=== PATIENT | male | born 1980 | race Caucasian/White ===

== ENCOUNTER 2018-05-10 07:05 | Day surgery (SDC) | END 2018-05-10 15:09 | disposition home or self-care (01) ==

== ENCOUNTER 2018-08-08 17:34 | Emergency (ER) | END 2018-08-08 20:40 | disposition home or self-care (01) ==

== ENCOUNTER 2019-01-10 14:14 | Emergency (ER) | payer BC ==
[~2019-01-10] VITALS: Wt 105.0 kg
[~2019-01-10 14:14] MED LIST: LISI-313 PO; ZOLP10TA PO
[2019-01-10] MEDS ORDERED: KETOROLAC 30 MG INJ IV STA (16:56)
[2019-01-10] MEDS ORDERED: IODIXANOL LOCM 100 ML BTL ONE (17:51)
[2019-01-10] MEDS ORDERED: SOD CHLORIDE 0.9% 100 ML ONE (17:51)
[2019-01-10] MEDS ORDERED: IBUP-1542 PO (19:15)
[2019-01-10] MEDS ORDERED: DOCU-144 PO (19:15)
--- NOTE | 2019-01-10 19:17 | ERD ---
ER Documentation Chief Complaint Chief Complaint LOWER ABD PAIN X 1 WEEK HPI 38-year-old male presents with lower abdominal pain for last week. Is intermittent and crampy. May have had chills at home but no measured fevers. He has decreased appetite but no nausea vomiting. Denies urinary complaints. Patient states that pain is intermittently right and left. ROS All systems reviewed and are negative except as per history of present illness. Medications Home Meds Active Scripts Ibuprofen* (Motrin*) 600 Mg Tab, 600 MG PO Q6, #20 TAB Prov:ZAY CLINE MD 01/10/19 Docusate Sodium* (Colace*) 100 Mg Capsule, 100 MG PO BID, #30 CAP Prov:ZAY CLINE MD 01/10/19 Zolpidem Tartrate* (Ambien*) 10 Mg Tablet, 10 MG PO QHS PRN for INSOMNIA, #15 TAB Prov:RICHY PROCTOR DO 08/08/18 Reported Medications Lisinopril* (Lisinopril*) 5 Mg Tablet, 5 MG PO DAILY, #30 TAB 08/08/18 Allergies Allergies: Coded Allergies: No Known Allergy (Verified , 08/08/18) PMhx/Soc History of Surgery: Yes (LT ARM SURGERY, hernia repair) Anesthesia Reaction: No Hx Neurological Disorder: No Hx Respiratory Disorders: No Hx Cardiac Disorders: Yes (HTN) Hx Psychiatric Problems: No Hx Miscellaneous Medical Probl: No Hx Alcohol Use: Yes (every weekend) Hx Substance Use: No Hx Tobacco Use: No Smoking Status: Never smoker FmHx Family History: No diabetes, No coronary disease, No other Physical Exam Vitals Vital Signs Date Temp Pulse Resp B/P (MAP) Pulse Ox O2 O2 Flow FiO2 Time Delivery Rate 01/10/19 98.0 74 99 160/60 99 14:17 (93) Physical Exam Const: No acute distress Head: Atraumatic Eyes: Normal Conjunctiva ENT: Normal External Ears, Nose and Mouth. Neck: Full range of motion. No meningismus. Resp: Clear to auscultation bilaterally Cardio: Regular rate and rhythm, no murmurs Abd: Soft, minimal lower abdominal tenderness bilaterally with out rebound. No focal tenderness at McBurney's point no Faulkner sign. Non distended. Normal bowel sounds Skin: No petechiae or rashes Back: No midline or flank tenderness Ext: No cyanosis, or edema Neur: Awake and alert Psych: Normal Mood and Affect Result Diagram: 01/10/19 1710 01/10/19 1710 Results 24 hrs Laboratory Tests Test 01/10/19 17:10 White Blood Count 6.2 10^3/ul Red Blood Count 5.95 10^6/ul Hemoglobin 16.8 g/dl Hematocrit 51.4 % Mean Corpuscular Volume 86.4 fl Mean Corpuscular Hemoglobin 28.2 pg Mean Corpuscular Hemoglobin Concent 32.7 g/dl Red Cell Distribution Width 13.5 % Platelet Count 207 10^3/UL Mean Platelet Volume 9.6 fl Immature Granulocytes % 0.200 % Neutrophils % 59.0 % Lymphocytes % 31.0 % Monocytes % 8.2 % Eosinophils % 0.8 % Basophils % 0.8 % Nucleated Red Blood Cells % 0.0 /100WBC Immature Granulocytes # 0.010 10^3/ul Neutrophils # 3.7 10^3/ul Lymphocytes # 1.9 10^3/ul Monocytes # 0.5 10^3/ul Eosinophils # 0.1 10^3/ul Basophils # 0.1 10^3/ul Nucleated Red Blood Cells # 0.0 10^3/ul Urine Color STRAW Urine Clarity CLEAR Urine pH 5 Urine Specific [place] 1.015 Urine Ketones NEGATIVE mg/dL Urine Nitrite NEGATIVE mg/dL Urine Bilirubin NEGATIVE mg/dL Urine Urobilinogen 0.2 E.U./dL mg/dL Urine Leukocyte Esterase NEGATIVE Griselda/ul Urine Microscopic RBC 0 /HPF Urine Microscopic WBC 0 /HPF Urine Hemoglobin NEGATIVE mg/dL Urine Glucose NEGATIVE mg/dL Urine Total Protein NEGATIVE mg/dl Sodium Level 140 mmol/L Potassium Level 4.6 mmol/L Chloride Level 107 mmol/L Carbon Dioxide Level 24 mmol/L Anion Gap 9 Blood Urea Nitrogen 16 mg/dl Creatinine 1.15 mg/dl Est Glomerular Filtrat Rate mL/min > 60 mL/min Glucose Level 101 mg/dl Calcium Level 9.6 mg/dl Total Bilirubin 0.8 mg/dl Direct Bilirubin 0.00 mg/dl Indirect Bilirubin 0.8 mg/dl Aspartate Amino Transf (AST/SGOT) 37 IU/L Alanine Aminotransferase (ALT/SGPT) 41 IU/L Alkaline Phosphatase 60 IU/L Total Protein 7.6 g/dl Albumin 4.4 g/dl Globulin 3.20 g/dl Albumin/Globulin Ratio 1.37 Lipase 88 U/L Current Medications Medications Dose Sig/Yaima Start Time Status Last (Trade) Ordered Route PRN Stop Time Admin Dose Reason Admin Ketorolac 30 mg ONCE STAT 01/10/19 DC 01/10/19 Tromethamine IV 16:56 01/10/19 17:22 (Toradol) 16:57 IV Flush 10 ml STK-MED 01/10/19 DC (NS 10 ml) ONCE .ROUTE 17:51 01/10/19 17:52 Sodium 100 ml @ ud STK-MED 01/10/19 DC Chloride ONCE .ROUTE 17:51 01/10/19 17:52 Iodixanol 100 ml STK-MED 01/10/19 DC (Visipaque ONCE .ROUTE 17:51 01/10/19 Locm) 17:52 Procedures/MDM CBC and CMP and lipase normal. Urine is negative. CT abdomen pelvis shows no significant acute abnormal findings. No evidence of diverticulitis, appendicitis, additional signs of surgical abdomen. Patient does have findings of constipation on CT. Will treat for this with Colace, ibuprofen, primary care follow-up and return precautions. He is advised to return for fevers, vomiting, worsening pain, blood, new or worsening symptoms with primary care doctor. The patient was stable with no new complaints during the ER course. Clinically, there is no current evidence to suggest meningitis, sepsis, acute abdomen, pneumonia, stroke, acute coronary syndrome, pulmonary embolism, aortic dissection or any other emergent condition appearing to require further evaluation or hospitalization. Patient counseled regarding my diagnostic impression and care plan. Prior to discharge all questions answered. Pt agrees with treatment plan and understands strict return precautions. Pt is instructed to follow up with primary care provider within 24-48 hours. Precautionary instructions provided including instructions to return to the ER if not improving or for any worsening or changing symptoms or concerns. Departure Diagnosis: Primary Impression: Constipation Constipation type: unspecified constipation type Qualified Codes: K59.00 - Constipation, unspecified Additional Impression: Abdominal pain Abdominal location: lower abdomen, unspecified Qualified Codes: R10.30 - Lower abdominal pain, unspecified Condition: Stable Patient Instructions: Abdominal Pain, Constipation (Adult) Additional Instructions: All examinations normal today. Only significant finding is constipation and we will treat for this. Recheck for fevers, vomiting, new or worsening symptoms. See primary doctor within the next week for follow-up. ZAY CLINE MD Jan 10, 2019 19:16
[2019-01-10 19:36] VITALS: BP 131/73; PULSE 71; RESP 20
== END 2019-01-10 19:38 | disposition home or self-care (01) ==
LOC: FTE 14:14
DX: K59.00 Constipation, unspecified (principal); I10 Essential (primary) hypertension
CPT/HCPCS: 36415; 74177; 80053; 81003; 83690; 85025; 96374; 99285; J1885; Q9967

== ENCOUNTER 2019-05-17 15:59 | Emergency (ER) | payer BC ==
[~2019-05-17] VITALS: Ht 182.9 cm; Wt 96.8 kg
[~2019-05-17 15:59] MED LIST changes: +DOCU-144 PO; +IBUP-1542 PO
[2019-05-17 16:05] VITALS: Ht 182.9 cm; Wt 96.8 kg
--- NOTE | 2019-05-17 19:52 | ERD ---
ER Documentation Chief Complaint Chief Complaint painful urination x 1 week ROS All systems reviewed and are negative except as per history of present illness. Medications Home Meds Active Scripts Ibuprofen* (Motrin*) 600 Mg Tab, 600 MG PO Q6, #20 TAB Prov:ZAY CLINE MD 01/10/19 Docusate Sodium* (Colace*) 100 Mg Capsule, 100 MG PO BID, #30 CAP Prov:ZAY CLINE MD 01/10/19 Zolpidem Tartrate* (Ambien*) 10 Mg Tablet, 10 MG PO QHS PRN for INSOMNIA, #15 TAB Prov:RICHY PROCTOR DO 08/08/18 Reported Medications Lisinopril* (Lisinopril*) 5 Mg Tablet, 5 MG PO DAILY, #30 TAB 08/08/18 Allergies Allergies: Coded Allergies: No Known Allergy (Verified , 08/08/18) PMhx/Soc History of Surgery: Yes (LT ARM SURGERY, hernia repair) Anesthesia Reaction: No Hx Neurological Disorder: No Hx Respiratory Disorders: No Hx Cardiac Disorders: Yes (HTN) Hx Psychiatric Problems: No Hx Miscellaneous Medical Probl: No Hx Alcohol Use: Yes (every weekend) Hx Substance Use: No Hx Tobacco Use: No Smoking Status: Never smoker Physical Exam Vitals Vital Signs Date Temp Pulse Resp B/P (MAP) Pulse Ox O2 O2 Flow FiO2 Time Delivery Rate 05/17/19 98.2 74 18 135/84 99 16:05 (101) Physical Exam Const: No acute distress Head: Atraumatic Eyes: Normal Conjunctiva ENT: Normal External Ears, Nose and Mouth. Neck: Full range of motion. No meningismus. Resp: Clear to auscultation bilaterally Cardio: Regular rate and rhythm, no murmurs Abd: Soft, non tender, non distended. Normal bowel sounds Skin: No petechiae or rashes Back: No midline or flank tenderness Ext: No cyanosis, or edema Neur: Awake and alert Psych: Normal Mood and Affect Result Diagram: 05/17/19201005/17/192010 Results 24 hrs Laboratory Tests Test 05/17/19 20:11 White Blood Count 3.9 10^3/ul Red Blood Count 5.67 10^6/ul Hemoglobin 15.8 g/dl Hematocrit 48.4 % Mean Corpuscular Volume 85.4 fl Mean Corpuscular Hemoglobin 27.9 pg Mean Corpuscular Hemoglobin Concent 32.6 g/dl Red Cell Distribution Width 13.3 % Platelet Count 193 10^3/UL Mean Platelet Volume 9.3 fl Immature Granulocytes % 0.300 % Neutrophils % 43.8 % Lymphocytes % 38.0 % Monocytes % 16.1 % Eosinophils % 1.3 % Basophils % 0.5 % Nucleated Red Blood Cells % 0.0 /100WBC Immature Granulocytes # 0.010 10^3/ul Neutrophils # 1.7 10^3/ul Lymphocytes # 1.5 10^3/ul Monocytes # 0.6 10^3/ul Eosinophils # 0.1 10^3/ul Basophils # 0.0 10^3/ul Nucleated Red Blood Cells # 0.0 10^3/ul Urine Color YELLOW Urine Clarity SLIGHTLY CLOUDY Urine pH 5.0 Urine Specific [place] 1.029 Urine Ketones NEGATIVE mg/dL Urine Nitrite NEGATIVE mg/dL Urine Bilirubin NEGATIVE mg/dL Urine Urobilinogen 1+ mg/dL Urine Leukocyte Esterase NEGATIVE Griselda/ul Urine Microscopic RBC 3 /HPF Urine Microscopic WBC 2 /HPF Urine Mucus MODERATE /HPF Urine Hemoglobin NEGATIVE mg/dL Urine Glucose NEGATIVE mg/dL Urine Total Protein NEGATIVE mg/dl Sodium Level 140 mmol/L Potassium Level 4.5 mmol/L Chloride Level 105 mmol/L Carbon Dioxide Level 27 mmol/L Anion Gap 8 Blood Urea Nitrogen 14 mg/dl Creatinine 1.04 mg/dl Est Glomerular Filtrat Rate mL/min > 60 mL/min Glucose Level 99 mg/dl Calcium Level 9.2 mg/dl Departure Diagnosis: Primary Impression: UTI (urinary tract infection) Condition: Stable Patient Instructions: Understanding Urinary Tract Infections (UTIs) Additional Instructions: Thank you very much for allowing us to participate in your care. Your health and safety is our top priority at [facility]. The evaluation in the emergency department has been done to rule out an acute emergency. Chronic, [id number] conditions may have not been evaluated; therefore, you need to follow up with a primary care provider in the next 48h. If symptoms persist, worsen or new symptoms develop, then patient should return to the ED immediately. Call your primary care doctor TOMORROW for an appointment during the next 2-4 days and bring all the information provided. Have prescriptions filled and follow precisely the directions on the label. If the symptoms get worse and your provider is unavailable, return to the Emergency Department immediately. DAPHNEY NOONAN MD May 17, 2019 19:52
[2019-05-17] MEDS ORDERED: CIPR-193 PO (21:09)
[2019-05-17] MEDS ORDERED: ACET325T33 PO (21:09)
[2019-05-17 21:33] VITALS: BP 136/87; PULSE 66; RESP 17
== END 2019-05-17 21:31 | disposition home or self-care (01) ==
LOC: FTE 15:59
DX: N39.0 Urinary tract infection, site not specified (principal); I10 Essential (primary) hypertension
CPT/HCPCS: 36415; 80048; 81001; 81003; 85025; 99283